=== PATIENT | male | born 1990 | race Caucasian/White ===

== ENCOUNTER 2021-03-10 12:11 | Emergency (ER) | payer OTHER, SELFPAY ==
[2021-03-10 12:21] VITALS: BP 198/63; PULSE 90; RESP 16; TEMP 37; O2SAT 98; BMI 18.5
--- NOTE | 2021-03-10 13:06 | ED.SKABFB ---
HPI - Skin/Abscess/Foreign Bdy General Chief complaint: Skin/Abscess/Foreign Body Stated complaint: CHAPPED HANDS [facility] Time Seen by Provider: 03/10/21 12:57 Source: patient Mode of arrival: ambulatory Limitations: no limitations History of Present Illness HPI narrative: 50-year-old male presents for 3 week worsening rash on his bilateral hands. 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 Patient use some ho-chunk powder, 2 days ago, noticed that his hands became worse MD complaint: rash Onset (ago): week(s) (3) Tetanus up to date: unsure Location: L hand and R hand Severity: moderate Quality: pruritic Relieving factors: none Context: other (ho-chunk exposure, possible landscaping chemical exposure) Associated symptoms: denies other symptoms Treatments prior to arrival: none Related Data Previous Rx's Medication Instructions Recorded acyclovir 400 mg tablet 400 mg PO TID 7 Days #21 tab 03/10/21 triamcinolone acetonide 0.5 % 1 appl TOPICAL BID #15 g 03/10/21 topical cream Allergies Allergy/AdvReac Type Severity Reaction Status Date / Time No Known Allergies Allergy Unverified 03/17/20 16:54 [No Known Allergies*] Review of Systems Review of Systems: Constitutional : No Weight loss, No Fever, No Chills, No Night Sweats,No Fatigue, No Malaise ENT/Mouth : No Hearing loss, No Ear Pain, No Nasal Congestion, NoSinus Pain, No Hoarseness, No sore throat, No Rhinorrhea, NoSwallowing Difficulty Eyes: No Eye Pain, No Swelling, No Redness, No Foreign Body, NoDischarge, No Vision Changes Cardiovascular : No Chest Pain, No SOB, No Dyspnea on Exertion, NoOrthopnea, No Edema, No Palpitations Respiratory : No Cough, No Sputum, No Wheezing, No Smoke Exposure, No Dyspnea Gastrointestinal : No Nausea, No Vomiting, No Diarrhea, NoConstipation, No abdominal Pain, No Hematochezia, No Melena Genitourinary : no irregular bleeding, No Dysuria, No UrinaryFrequency, No Hematuria, No Urinary Incontinence, No Urgency, No FlankPain, No Urinary Flow Changes, No Hesitancy Musculoskeletal : No joint pain, No Myalgias, No Joint Swelling Skin : rash on both hands Neuro : No Weakness, No Numbness, No Paresthesias, No Loss ofConsciousness, No Dizziness, No Headache PMFSH Past Medical History Medical History Asthma Social History Social History Advance Directives: No Advance Directives Information Provided: No Physical Exam Vital Signs: Vital Signs: Last Vital Signs Temp 98.6 F 03/10/21 12:21 Pulse 90 03/10/21 12:21 Resp 16 03/10/21 12:21 BP 198/63 H 03/10/21 12:21 Pulse Ox 98 03/10/21 12:21 Body Mass Index 18.5 Appearance: Alert. Oriented X3. No acute distress. Head: Normal external exam. Normocephalic. Atraumatic. ?No Beatty signs noted. No raccoon eyes noted Eyes: PERRLA. EOMI. Conjunctiva and sclera normal. Eyelids normal. ENT: EAC normal. TM's Normal. Pharynx normal. Uvula midline. Moist mucous membranes. ??No trismus noted. ?No drooling noted. ?No muffled voice noted. Neck: Normal inspection. Neck supple. FROM. No adenopathy. Thyroid Normal. No meningeal signs. No neck mass noted. CVS: Normal heart rate and rhythm. Heart sound normal. Pulses normal throughout. ?No murmurs/rales/gallops. Respiratory: No respiratory distress. Painless inspiration. Breath sounds normal. No wheezes/rales/rhonchi noted. Chest nontender. ??No accessory muscle usage noted or decreased air movement noted. Skin: dry scaley rash to bilateral hands and web spaces, with tiny vesicles Extremities: No lower extremity edema. ??Extremities exhibit normal range of motion. ?Extremities nontender. Neuro: Oriented X 3. ?No motor deficit. ?No sensory deficit. ?Reflexes normal. ?Normal steady gait. ?No focal neuro deficits noted. Vascular: + radial pulses ?Normal cap refill. ?No cyanosis noted to upper extremity nails Course Course Course Narrative: 30-year-old male presents for itchy scaly rash to bilateral hands from web spaces. 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 For the last 3 weeks patient has had this rash, small vesicles appear and disappear, it is itchy. Eczema herpeticum or eczema or contact derm Will treat with antivirals, take HSV labs, triamcinolone cream. Gave return precautions. Discharge Plan Discharge Clinical Impression: Rash of both hands Patient Disposition: Home, Self-Care Instructions: Acute Rash (ED) Additional Instructions: Use the cream over both hands twice a day for 1 week. Take the antivirals for 5 days. If her rash gets worse please return to the emergency room. Prescriptions: New acyclovir 400 mg tablet 400 mg PO TID 7 Days Qty: 21 RF: 0 triamcinolone acetonide 0.5 % cream 1 appl topical BID Qty: 15 RF: 1 Stand Alone Forms: Work/School Release
[2021-03-16 16:22] LABS: HSV 1 IgM IFA Negative (Negative); HSV 2 IgM IFA Negative (Negative)
== END 2021-03-10 13:47 | disposition home or self-care (01) ==
PROVIDERS: Physician Assistant; Emergency Provider Emergency Medicine; PCP Physician Assistant
DX: R21 Rash and other nonspecific skin eruption (principal); B35.6 Tinea cruris; Z79.899 Other long term (current) drug therapy
CPT/HCPCS: 36415; 86695; 86696; 99283

== ENCOUNTER → 2021-09-01 09:49 | Outpatient (BNVA) | payer OTHER, SELFPAY | PROVIDERS: PCP Physician Assistant; Visit Provider Internal Medicine | DX: S91.331A Puncture wound without foreign body, right foot, initial encounter (principal); W45.0XXA Nail entering through skin, initial encounter | CPT/HCPCS: 73630; 99203 ==

== ENCOUNTER → 2022-05-08 08:09 | Outpatient (BNVA) | payer OTHER, SELFPAY | PROVIDERS: PCP Physician Assistant; Visit Provider Physician Assistant Medical | DX: S29.012A Strain of muscle and tendon of back wall of thorax, initial encounter (principal); X50.0XXA Overexertion from strenuous movement or load, initial encounter | CPT/HCPCS: 99203 ==

== ENCOUNTER → 2022-05-10 09:27 | Outpatient (BNVA) | payer OTHER, SELFPAY | PROVIDERS: PCP Physician Assistant; Visit Provider Physician Assistant Medical | DX: S29.012A Strain of muscle and tendon of back wall of thorax, initial encounter (principal); X50.0XXA Overexertion from strenuous movement or load, initial encounter | CPT/HCPCS: 99213 ==

== ENCOUNTER → 2022-05-17 13:21 | Outpatient (BNVA) | payer OTHER, SELFPAY | PROVIDERS: PCP Physician Assistant; Visit Provider Physician Assistant Medical | DX: S29.012A Strain of muscle and tendon of back wall of thorax, initial encounter (principal); X50.0XXA Overexertion from strenuous movement or load, initial encounter | CPT/HCPCS: 99213 ==

== ENCOUNTER → 2022-06-01 09:48 | Outpatient (BNVA) | payer OTHER, SELFPAY | PROVIDERS: PCP Physician Assistant; Visit Provider Physician Assistant Medical | DX: S29.012D Strain of muscle and tendon of back wall of thorax, subsequent encounter (principal); X58.XXXD Exposure to other specified factors, subsequent encounter | CPT/HCPCS: 99213 ==

== ENCOUNTER → 2022-06-21 10:57 | Outpatient (BNVA) | payer OTHER, SELFPAY | PROVIDERS: PCP Physician Assistant; Visit Provider Physician Assistant Medical | DX: S29.012D Strain of muscle and tendon of back wall of thorax, subsequent encounter (principal); X50.0XXD Overexertion from strenuous movement or load, subsequent encounter | CPT/HCPCS: 99213 ==

== ENCOUNTER 2022-06-28 11:00 | Outpatient (RCR) | payer OTHER, SELFPAY ==
--- NOTE | 2022-05-15 12:06 | MHC.PT.EP ---
[facility] [place] Office [place] [facility] [place] [facility] [address] [phone] F: [phone] F: [phone] F: [phone] F: [phone] Physical Therapy Plan of Care Date of Evaluation: Date of Surgery: Diagnosis: R thoracic strain/ spasm Assessment: 31 y/o right hand dominant male referred to PT from work connection with R thoracic strain. He injured his back at work on 05/08/22 while trying to pull and connect a trailer to the vehicle. He was sent to work connection and is out of work currently. States his pain is worse when it rains, dressing upper body, lifting, twisting, bending and work duties such as lifting/ pushing. 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 Examination shows decreased lumbar/ thoracic ROM, pain with R shoulder end range motion, decreased strength of hip muscaluture, normal breathing patterns, increased muscle spasm R thoracic paraspinals and impaired postural awareness. S/s consistent with strain of thoracic musculature and ?thoracic derangement. Recommend PT 2x/week for 5 weeks to address impairments, implement HEP, and optimize functional mobility. Frequency and Duration: The patient will be seen 2x/week for 5 weeks Short Term Goals: 3 weeks Compliant with HEP Pt will demonstrate normal arm swing with gait Chcf Goals: 5 weeks I with HEP and self management of sx Pt will demonstrate 5/5 LE strength to faciliate lifting without pain Reports >50% decrease in pain overall to faciliate RTW Pt will be able to lift 30# box from ground to waist with proper mechanics and pain < 3.10 Treatment Plan: Modalities to reduce pain, spasms and effusion. Manual therapy to restore motion and function. Therapeutic exercise to improve strength and flexibility. Neuromuscular re-education for posture and balance. Therapeutic activities to return to functional activities of daily living. Electronically signed by: Mishel Patel PT Please sign and return to therapist. Thank you for your referral.
--- NOTE | 2022-08-09 13:42 | MHC.PT.DC ---
[facility] [place] [facility] [place] Office [place] [facility] [address]ha [address] [phone] F: [phone] F: [phone] F: [phone] F: [phone] Physical Therapy Discharge Report Diagnosis: R thoracic strain/ spasm Date of Surgery: Date of Evaluation: 05/15/22 Date of Discharge: 06/30/22 Treatments to Date: 7 Cancellations to Date: 0 No Shows to Date: 0 Discharge Status: Improved Function Independent with HEP Discharge Summary: Pt with improved mobility and strength, however he continues with some back pain with certain movements. He has made progress and is I with HEP. D/c at this time. Electronically signed by: Mishel Patel PT Please sign and return to therapist. Thank you for your referral.
== END 2022-08-09 13:42 | disposition home or self-care (01) ==
LOC: HO.PT 11:00
PROVIDERS: Visit Provider Physician Assistant Medical
DX: S29.012D Strain of muscle and tendon of back wall of thorax, subsequent encounter (principal)
CPT/HCPCS: 97110; 97140; 97161; 97530

== ENCOUNTER 2024-02-03 02:53 | Emergency (ER) | payer OTHER, SELFPAY ==
--- NOTE | ~2024-02-03 | XR_ITS ---
EXAMINATION: XR WRIST, RIGHT CLINICAL INFORMATION: Pain COMPARISON: None available. TECHNIQUE: PA, lateral, and oblique views of the right wrist. FINDINGS: Osseous alignment is anatomic. There is soft tissue swelling about the wrist. On the AP view there is questionable subtle linear lucency at the radial styloid, not clearly seen in the remaining views. If there has been trauma, the possibility of subtle fracture at this site cannot be excluded. Remaining osseous structures appear unremarkable. XR/XR wrist RT min 3V IMPRESSION: Soft tissue swelling about the wrist. Questionable subtle linear lucency at the radial styloid, not clearly seen in the remaining views. If there has been trauma, the possibility of subtle fracture at this site cannot be excluded.
[2024-02-03 02:58] VITALS: BP 110/73; PULSE 78; RESP 16; TEMP 36.7; O2SAT 98; BMI 16.6
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
[2024-02-03] MEDS: Morphine Sulfate Immed Release 15 MG TABLET PO (05:10)
[2024-02-03 05:36] VITALS: BP 105/62; PULSE 62; RESP 16; TEMP 36.8; O2SAT 98
== END 2024-02-03 05:45 | disposition home or self-care (01) ==
PROVIDERS: Emergency Provider Internal Medicine
DX: S62.101A Fracture of unspecified carpal bone, right wrist, initial encounter for closed fracture (principal); M79.601 Pain in right arm; Y33.XXXA Other specified events, undetermined intent, initial encounter; Y93.89 Activity, other specified; Y92.89 Other specified places as the place of occurrence of the external cause; Y99.8 Other external cause status
CPT/HCPCS: 29125; 73110; 99284

== ENCOUNTER 2024-06-04 10:39 | Emergency (ER) | payer OTHER, SELFPAY ==
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
[2024-06-04 11:09] VITALS: BP 121/74; PULSE 97; RESP 18; TEMP 36.7; O2SAT 98; BMI 18.1
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
[2024-06-04 14:08] LABS: MANUAL DIFF FLAG NO
[2024-06-04 14:11] LABS: Basophils Absolute Auto 0.1 X10*3/uL (0.0-0.2); Basophils Percent Auto 0.4 % (0-2); Eosinophils Absolute Auto 0.6 X10*3/uL (0.0-0.4); Eosinophils Percent Auto 4.6 % (0-4); Hematocrit 39.9 % (42.0-52.0); Hemoglobin 14.3 g/dl (14.0-18.0); Imm Gran Abs Auto 0.05 X10*3/uL (0.00-0.03); Imm Gran Pct Auto 0.4 % (0.0-0.4); Lymphocytes Absolute Auto 1.8 X10*3/uL (1.2-4.9); Lymphocytes Percent Auto 14.6 % (20-40); Mean Corpuscular HGB Conc 35.8 g/dl (31.0-36.0); Mean Corpuscular Hemoglobin 32.2 pg (27.0-33.0); Mean Corpuscular Volume 89.9 fL (80.0-98.0); Mean Platelet Volume 9.1 fL (9.4-12.4); Monocytes Absolute Auto 1.2 X10*3/uL (0.1-1.2); Monocytes Percent Auto 9.6 % (2-11); Neutrophils Absolute Auto 8.8 x10*3/uL (2.0-8.3); Neutrophils Percent Auto 70.4 % (45-73); Platelet Count 300 X10*3/uL (160-400); Red Blood Count 4.44 X10*6/uL (4.60-5.80); Red Cell Distribution Width 12.6 % (11.0-16.0); White Blood Count 12.5 X10*3/uL (4.8-10.8)
[2024-06-04 14:23] LABS: Alanine Aminotransferase 27 U/L (0-40); Albumin Level 4.5 g/dL (3.5-5.0); Alkaline Phosphatase 57 U/L (39-117); Anion Gap 9 (12-20); Aspartate Amino Transferase 18 U/L (5-37); Bilirubin Total 0.5 mg/dL (0.0-1.0); Blood Urea Nitrogen 8 mg/dL (9-16); Calcium 9.4 mg/dL (8.4-10.2); Carbon Dioxide 27 mmol/L (22-29); Chloride 107 mmol/L (96-108); Creatinine Clr Calc Pharmacy 80.8; Estimated Glomerular Filt Rate > 60; Glucose Random 90 mg/dL (60-115); Potassium 4.4 mmol/L (3.3-5.1); Sodium 139 mmol/L (135-145); Total Protein 7.1 g/dL (6.5-8.0)
[2024-06-04] MEDS: iohexoL 350 MG/ML 100 ML INFUS..BTL 85 ML IV (16:30)
--- NOTE | 2024-06-04 16:33 | PC.NURSE ---
spoke with [facility] qi specialist- will reach out to radiology fro update
[2024-06-04 19:23] VITALS: BP 115/77; PULSE 84; RESP 20; TEMP 36.7; O2SAT 97
[2024-06-04 19:43] VITALS: BP 115/77; PULSE 84; RESP 20; TEMP 36.7; O2SAT 97
== END 2024-06-04 19:44 | disposition home or self-care (01) ==
PROVIDERS: Physician Assistant; Emergency Provider Student in an Organized Health Care Education/Training Program
DX: S02.85XA Fracture of orbit, unspecified, initial encounter for closed fracture (principal); R10.2 Pelvic and perineal pain; M54.2 Cervicalgia; R51.9 Headache, unspecified; R07.89 Other chest pain; M79.601 Pain in right arm; M79.605 Pain in left leg; V03.90XA Pedestrian on foot injured in collision with car, pick-up truck or van, unspecified whether traffic or nontraffic accident, initial encounter; Y93.89 Activity, other specified; Y92.488 Other paved roadways as the place of occurrence of the external cause; Y99.8 Other external cause status; Z79.899 Other long term (current) drug therapy
CPT/HCPCS: 36415; 70450; 71260; 72125; 73060; 73590; 74177; 80053; 85025; 99283; 99284; Q9967

== ENCOUNTER → 2024-06-04 11:12 | Outpatient (BNV) | payer OTHER, SELFPAY | PROVIDERS: Visit Provider Radiology Diagnostic Radiology | DX: S02.831A Fracture of medial orbital wall, right side, initial encounter for closed fracture (principal); M79.601 Pain in right arm; M79.605 Pain in left leg | CPT/HCPCS: 70450; 73060; 73590 ==

== ENCOUNTER 2024-08-07 01:59 | Emergency (ER) | payer SELFPAY ==
--- NOTE | ~2024-08-07 | XR_ITS ---
CLINICAL HISTORY: swelling 3 view left hand Comparison: None Findings: No displaced fracture. No dislocation. Soft tissue swelling including proximal soft tissues. No retained radiopaque foreign body. IMPRESSION: 1. No acute fracture or dislocation. 2. Nonspecific soft tissue swelling. This document has been electronically signed by: Joe Arechiga MD on 08/07/2024 02:44:32
[2024-08-07 02:06] VITALS: BP 120/75; PULSE 91; RESP 16; TEMP 36.6; O2SAT 97; BMI 18.6
[2024-08-07 05:04] VITALS: BP 115/74; PULSE 85; RESP 16; TEMP 36.7; O2SAT 98
--- NOTE | 2024-08-07 05:47 | ED_ITS ---
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 earlier patient has had redness and warmth of the left thumb no pus discharge Related Data Previous Rx's ?Medication ?Instructions ?Recorded acyclovir 400 mg tablet 400 mg PO TID 7 days #21 tabs 03/10/21 albuterol sulfate 90 mcg/actuation 2 puff inhalation Q4-6H PRN 03/10/21 aerosol inhaler shortness of breath or wheezing #6.7 grams triamcinolone acetonide 0.5 % 1 appl topical BID apply to both 03/10/21 topical cream hands twice a day #15 grams ibuprofen 600 mg tablet 600 mg PO Q6H PRN fever or pain 02/03/24 #30 tabs tramadol 50 mg tablet 50 mg PO Q6H PRN pain #20 tabs 02/03/24 amoxicillin 875 mg-potassium 1 tab PO Q12H 10 days #20 tabs 06/04/24 clavulanate 125 mg tablet naproxen 500 mg tablet 500 mg PO BID PRN pain 7 days #14 06/04/24 tabs doxycycline hyclate 100 mg tablet 100 mg PO BID #20 tabs 08/07/24 Allergies Allergy/AdvReac Type Severity Reaction Status Date / Time No Known Allergies Allergy Verified 08/07/24 02:08 [No Known Allergies*] Review of Systems 2 Review of Systems: Yes all other systems are reviewed and are negative PMFSH Past Medical History Medical History Asthma Social History Social History Alcohol intake: never Substance Use Type: Marijuana Advance Directives: No Advance Directives Information Provided: Yes Do you have a plan to hurt others: No Plan Physical Exam 2 Vital Signs: Vital Signs: Last Vital Signs Temp 98.0 F 08/07/24 05:04 Pulse 85 08/07/24 05:04 Resp 16 02/07/25 05:04 BP 115/74 08/07/24 05:04 Pulse Ox 98 08/07/24 05:04 O2 Del Method Room Air 08/07/24 05:04 BMI result Body Mass Index 18.6 Extrem: Hand/finger images: 1. Slight soft tissue swelling and warmth no significant open wound noticed superficial abrasions no bony tenderness good range of movement Medical Decision Making Medical Decision Making MDM Narrative: Patient's soft tissue tenderness in the left thumb x-ray negative for fracture no foreign body seen likely cellulitis as the cause prescribed doxycycline patient is up-to-date in tetanus last tetanus shot was in within last 2 years Discharge Plan Discharge Clinical Impression: Cellulitis of thumb, left Patient Disposition: Home, Self-Care Instructions: Cellulitis (ED) Additional Instructions: Take antibiotic as prescribed Report to your PCP/ED if worsening of redness or swelling Prescriptions: New doxycycline hyclate 100 mg tablet 100 mg PO BID Qty: 20 0RF No Action acyclovir 400 mg tablet 400 mg PO TID 7 Days Qty: 21 0RF triamcinolone acetonide 0.5 % cream 1 appl topical BID Qty: 15 1RF albuterol sulfate 90 mcg/actuation HFA aerosol inhaler 2 puff inhalation Q4-6H PRN (Reason: shortness of breath or wheezing) Qty: 6.7 1RF amoxicillin-pot clavulanate 875-125 mg tablet 1 tab PO Q12H 10 Days Qty: 20 0RF naproxen 500 mg tablet 500 mg PO BID PRN (Reason: pain) 7 Days Qty: 14 0RF tramadol 50 mg tablet 50 mg PO Q6H PRN (Reason: pain) Qty: 20 0RF ibuprofen 600 mg tablet 600 mg PO Q6H PRN (Reason: fever or pain) Qty: 30 0RF Print Language: Ukrainian
[2024-08-07] MEDS: Doxycycline Monohydrate 100 MG CAPSULE PO (06:08)
[2024-08-07 06:14] VITALS: BP 115/74; PULSE 85; RESP 16; TEMP 36.7; O2SAT 98
== END 2024-08-07 06:15 | disposition home or self-care (01) ==
PROVIDERS: Emergency Provider Internal Medicine
DX: L03.012 Cellulitis of left finger (principal); M79.642 Pain in left hand
CPT/HCPCS: 73130; 99283; 99284

== ENCOUNTER → 2024-08-07 02:14 | Outpatient (BNV) | payer OTHER, SELFPAY | PROVIDERS: Visit Provider Radiology Neuroradiology | DX: R22.32 Localized swelling, mass and lump, left upper limb (principal) | CPT/HCPCS: 73130 ==

== ENCOUNTER → 2025-02-05 16:53 | Outpatient (BNV) | payer SELFPAY | PROVIDERS: Emergency Provider Emergency Medicine; Visit Provider Radiology Diagnostic Radiology | DX: S42.001A Fracture of unspecified part of right clavicle, initial encounter for closed fracture (principal); M25.511 Pain in right shoulder; W19.XXXA Unspecified fall, initial encounter | CPT/HCPCS: 73030 ==

== ENCOUNTER 2025-02-05 16:57 | Emergency (ER) | payer MEDICAID, SELFPAY ==
--- NOTE | ~2025-02-05 | XR_ITS ---
CLINICAL HISTORY: fall - shoulder pain Radiographs of the right shoulder, 2 views Comparison: CR/SR - XR HUMERUS RIGHT - 06/04/24 11:28 EST Findings: There is a fracture of the midportion of the right clavicle with mild comminution and displacement. Intact acromioclavicular and glenohumeral joints. The joint spaces are preserved without osteophytosis. Bone mineralization is normal. Soft tissue swelling. Impression: Fracture of the clavicle. This document has been electronically signed by: Brittany Conde MD on 02/05/2025 18:21:44
[2025-02-05 17:15] VITALS: BP 108/50; PULSE 50; O2SAT 99; BMI 17.9
[2025-02-05 17:19] VITALS: BP 119/67; PULSE 55; RESP 15; TEMP 36.3; O2SAT 98
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
[2025-02-05 19:29] VITALS: BP 119/67; PULSE 55; RESP 15; TEMP 36.3; O2SAT 98
--- NOTE | 2025-02-05 19:29 | PC.NURSE ---
sling applied to affected limb
== END 2025-02-05 19:31 | disposition home or self-care (01) ==
PROVIDERS: Emergency Provider Emergency Medicine
DX: S42.001A Fracture of unspecified part of right clavicle, initial encounter for closed fracture (principal); V28.2 Unspecified motorcycle rider injured in noncollision transport accident in nontraffic accident; Y93.9 Activity, unspecified; Y92.9 Unspecified place or not applicable; Y99.9 Unspecified external cause status; M25.511 Pain in right shoulder
CPT/HCPCS: 73030; 99283; 99284

== ENCOUNTER 2025-02-10 08:47 | Outpatient (REF) | payer OTHER, SELFPAY ==
--- NOTE | ~2025-02-10 | XR_ITS ---
EXAMINATION: XR CLAVICLE RIGHT HISTORY: S42.009A - Fracture of unspecified part of unspecified clavicle, initial... COMPARISON: Comparison is made with the prior examination of the right shoulder dated 02/05/2025. FINDINGS: Two views of the right clavicle are submitted. Osseous mineralization is normal. Again seen is a comminuted fracture of the midshaft of the clavicle with approximately one shaft's width inferior displacement of the distal fracture fragment. The AC joint space is maintained. The soft tissues are unremarkable. XR/XR clavicle RT IMPRESSION: Comminuted fracture of the midshaft of the right clavicle as described. Electronically signed by: George Bray MD 02/10/2025 09:30 AM EDT
== END 2025-02-10 08:48 | disposition home or self-care (01) ==
LOC: HO.HOSX 08:47
PROVIDERS: Visit Provider Physician Assistant
DX: S42.001A Fracture of unspecified part of right clavicle, initial encounter for closed fracture (principal); M25.511 Pain in right shoulder; F17.210 Nicotine dependence, cigarettes, uncomplicated; V28.41XA Electric (assisted) bicycle driver injured in noncollision transport accident in traffic accident, initial encounter; Y93.55 Activity, bike riding; Y92.828 Other wilderness area as the place of occurrence of the external cause
CPT/HCPCS: 73000; 99212

== ENCOUNTER 2025-02-10 09:09 | Outpatient (AMB) | payer MEDICAID, SELFPAY ==
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
== END 2025-02-10 09:45 | disposition home or self-care (01) ==
LOC: HO.HOS 09:09
PROVIDERS: Visit Provider Physician Assistant
DX: S42.001A Fracture of unspecified part of right clavicle, initial encounter for closed fracture (principal)
CPT/HCPCS: 99204

== ENCOUNTER → 2025-02-10 09:09 | Outpatient (BNV) | payer OTHER, SELFPAY | PROVIDERS: Visit Provider Radiology Diagnostic Radiology | DX: S42.024A Nondisplaced fracture of shaft of right clavicle, initial encounter for closed fracture (principal) | CPT/HCPCS: 73000 ==

== ENCOUNTER 2025-02-25 08:15 | Outpatient (REF) | payer OTHER, SELFPAY ==
--- NOTE | ~2025-02-25 | XR_ITS ---
EXAMINATION: XR CLAVICLE, RIGHT CLINICAL INFORMATION: S42.009A - Fracture of unspecified part of unspecified clavicle, initial... COMPARISON: 02/10/2025. 02/05/2025. TECHNIQUE: Two views of the right clavicle. FINDINGS: There is a comminuted fracture of the mid diaphysis of the right clavicle with 2 butterfly fragments present. There is approximately 8 mm of inferior displacement, and approximately 5 mm of override. No significant angulation is evident. There is been no significant change since the prior radiograph. Grossly no bony healing is evident at this time. There is mild overlying soft tissue swelling. XR/XR clavicle RT IMPRESSION: 1. Comminuted mid diaphyseal clavicular fracture as detailed without significant change. Electronically signed by: Wai العلي MD 02/25/2025 08:34 AM EDT
== END 2025-02-25 08:16 | disposition home or self-care (01) ==
LOC: HO.HOSX 08:15
PROVIDERS: Visit Provider Physician Assistant
DX: S42.001D Fracture of unspecified part of right clavicle, subsequent encounter for fracture with routine healing (principal); X58.XXXD Exposure to other specified factors, subsequent encounter
CPT/HCPCS: 73000; 99212

== ENCOUNTER 2025-02-25 08:19 | Outpatient (AMB) | payer OTHER, SELFPAY ==
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
[2025-02-25 08:34] VITALS: BMI 17.8
== END 2025-02-25 08:47 | disposition home or self-care (01) ==
LOC: HO.HOS 08:20
PROVIDERS: Visit Provider Physician Assistant
DX: S42.001D Fracture of unspecified part of right clavicle, subsequent encounter for fracture with routine healing (principal)
CPT/HCPCS: 99213

== ENCOUNTER → 2025-02-25 08:21 | Outpatient (BNV) | payer OTHER, SELFPAY | PROVIDERS: Visit Provider Radiology Diagnostic Radiology | DX: S42.001A Fracture of unspecified part of right clavicle, initial encounter for closed fracture (principal) | CPT/HCPCS: 73000 ==

== ENCOUNTER 2025-03-19 08:13 | Outpatient (REF) | payer OTHER, SELFPAY | END 2025-03-19 08:14 | disposition home or self-care (01) | LOC: HO.HOSX 08:13 | PROVIDERS: Visit Provider Physician Assistant | DX: Z13.89 Encounter for screening for other disorder (principal) ==